=== PATIENT | male | born 1955 | race Caucasian/White ===

== ENCOUNTER 2017-07-29 16:18 | Emergency (ER) | payer OTHER ==
[~2017-07-29] VITALS: Ht 172.7 cm; Wt 76.2 kg
[2017-07-29 16:53] LABS: ABSOLUTE BASOPHIL COUNT 0 /CUMM (0.0-0.2); ABSOLUTE EOSINOPHIL COUNT 0.1 /CUMM (0.0-0.7); ABSOLUTE GRANULOCYTE CT 9.1 /CUMM (1.4-6.5); ABSOLUTE LYMPH COUNT 1.2 /CUMM (1.2-3.4); ABSOLUTE MONOCYTE COUNT 1.4 /CUMM (0.10-0.60); BASOPHIL % 0.1 % (0.0-2.0); EOSINOPHIL % 1.1 % (0-5); GRANULOCYTE % 76.7 % (42.2-75.2); MEAN CORPUSCULAR HGB 28.9 PG (27.0-31.0); MEAN CORPUSCULAR HGB CONC 33.6 G/DL (33.0-37.0); MEAN PLATELET VOLUME 6.5 FL (7.4-10.4); PLATELET COUNT 387 /CUMM (130-400); RBC DISTRIBUTION WIDTH 13.3 % (11.5-14.5); RED BLOOD CELL CT 4.18 /CUMM (4.70-6.10); WHITE BLOOD CELL COUNT 11.9 /CUMM (4.8-10.8)
--- NOTE | 2017-07-29 17:32 | ED NECK/BACK PAIN COMPLAINT ---
History of Present Illness General Chief Complaint: General Adult Stated Complaint: SENT BY DR. GRIFFIN FOR CT SCAN Source: patient Exam Limitations: no limitations Vital Signs & Intake/Output Vital Signs & Intake/Output Vital Signs Date Time Temp Pulse Resp B/P B/P Pulse O2 O2 Flow FiO2 Mean Ox Delivery Rate 07/29 1742 97 Room Air 07/29 1734 98.7 83 18 146/83 96 Room Air 07/29 1642 97.4 87 18 169/76 97 Room Air Room Air Allergies Coded Allergies: amoxicillin (From AUGMENTIN) (Intermediate, DIARRHEA 07/29/17) clavulanic acid (From AUGMENTIN) (Intermediate, DIARRHEA 07/29/17) Uncoded Allergies: IV CONTRAST (Intermediate, HOT, SWEATY 07/29/17) Reconcile Medications Clindamycin HCl (Cleocin HCl) 300 MG CAPSULE 1 CAP PO 4 TIMES/DAY neck mass Triage Note: PT TO ED WITH C/O ?ABCESS TO RIGHT NECK AREA, HAS HAD TESTS AND ANTIBIOTICS "GETTING BIGGER, HOT, RED, IT'S WORSE". DR BROWNING IN TO EVAL IN TRIAGE. BLOODWORK SENT FROM TRIAGE. Triage Nurses Notes Reviewed? yes Onset: Abrupt Duration: day(s):, constant Timing: recent history Quality/Severity: moderate, severe HPI: 62-year-old male sent in by his ear nose and throat doctor Dr. Griffin for increasing swelling on the right side of his neck. The swelling began this past Tuesday. It has gotten significantly larger. He denies any fever or vomiting or difficulty swallowing. Denies any prior history. He feels that it's more warm and hot to touch now. He was sent in for further evaluation for a CAT scan. (Baljit Montero) Past History Travel History Traveled to [place] past 21 day No Medical History Any Pertinent Medical History? see below for history Neurological: NONE EENT: NONE Cardiovascular: hypertension, hyperlipidemia Respiratory: NONE Gastrointestinal: NONE Hepatic: NONE Renal: NONE Musculoskeletal: NONE Psychiatric: NONE Endocrine: NONE Blood Disorders: NONE Cancer(s): NONE CLINICAL RN/Reproductive: NONE Surgical History Surgical History: non-contributory Psychosocial History What is your primary language Indian Tobacco Use: Quit >30 days ago ETOH Use: denies use Illicit Drug Use: denies illicit drug use Family History Hx Contributory? No (Baljit Montero) Review of Systems Review of Systems Constitutional: Reports: no symptoms. Eyes: Reports: no symptoms. Ears, Nose, Throat, Mouth: Reports: no symptoms. Respiratory: Reports: no symptoms. Cardiovascular: Reports: no symptoms. Gastrointestinal/Abdominal: Reports: no symptoms. Musculoskeletal: Reports: no symptoms. Skin: Reports: see HPI. Neurological/Psychological: Reports: no symptoms. All Other Systems: Reviewed and Negative (Baljit Montero) Physical Exam Physical Exam General Appearance: well developed/nourished, mild distress Head: atraumatic Eyes: Bilateral: normal appearance. Ears, Nose, Throat, Mouth: hearing grossly normal, moist mucous membrane Neck: swelling right side of neck, some warmth, some mild erythema, firm palpable mass Respiratory: normal breath sounds, no respiratory distress Cardiovascular: regular rate/rhythm Back: normal inspection Extremities: normal range of motion Neurologic/Psych: awake, alert, oriented x 3, normal mood/affect Skin: intact, normal color, warm/dry Core Measures CVA/TIA Diagnosis: No (Baljit Montero) Progress Differential Diagnosis: submandibular gland abscess, parotid gland abscess, lymphoma, cellulitis, skin abscess, Plan of Care: Orders Procedure Date/time Status Add-on Test (ER Only) 07/29 1731 Active Add-on Test (ER Only) 07/29 1703 Active C-REACTIVE PROTEIN 07/29 1645 Complete MONOSPOT TEST 07/29 1632 Complete COMPREHENSIVE METABOLIC PANEL 07/29 163 Complete CBC WITHOUT DIFFERENTIAL 07/29 1632 Complete Current Medications Sig/Gayathri Start time Last Medication Dose Stop Time Status Admin Acetaminophen 1,000 MG ONCE ONE 07/29 1914 AC (Ofirmev) 07/29 1928 N/A 1 UNIT (No Carrier) Ampicillin Sodium/ 3,000 MG ONCE ONE 07/29 1914 AC Sulbactam Sodium 07/29 1943 (Unasyn) Sodium Chloride 100 ML (Normal Saline 0.9%) Laboratory Tests 07/29/17 1645: Anion Gap 11, Estimated GFR > 60, BUN/Creatinine Ratio 28.6 H, Glucose 101 H, Calcium 9.0, Total Bilirubin 0.4, AST 20, ALT 35, Alkaline Phosphatase 83, C- Reactive Prot, Quant > 9.0 H, Total Protein 6.4, Albumin 3.5, Globulin 2.9, Albumin/Globulin Ratio 1.2, CBC w Diff NO MAN DIFF REQ, RBC 4.18 L, MCV 86.0, MCH 28.9, MCHC 33.6, RDW 13.3, MPV 6.5 L, Gran % 76.7 H, Lymphocytes % 10.0 L , Monocytes % 12.1 H, Eosinophils % 1.1, Basophils % 0.1, Absolute Granulocytes 9.1 H, Absolute Lymphocytes 1.2, Absolute Monocytes 1.4 H, Absolute Eosinophils 0.1, Absolute Basophils 0 07/29/17 1632: Infectious [place] Titer NEGATIVE Diagnostic Imaging: Viewed by Me: CT Scan. Discussed w/RAD: CT Scan. Radiology Impression: PATIENT: VINCE RENO PRESENT AGE: 62 PATIENT ACCOUNT NO: [id number] : 57 LOCATION: [facility] ORDERING PHYSICIAN: Baljit ROSALES SERVICE DATE: 07/29/17 EXAM TYPE : CAT - CT NECK W IV CONTRAST EXAMINATION: CT SOFT TISSUE NECK WITH CONTRAST CLINICAL INFORMATION: Right-sided neck swelling. COMPARISON: None TECHNIQUE: Following the administration of 95 mL of Optiray 320 intravenous contrast, helical imaging was performed in the axial plane with generation of coronal and sagittal reformatted images. A skin marker was placed in the right neck over the right sternocleidomastoid muscle. DLP: 500 mGy-cm FINDINGS: A heterogeneously enhancing centrally necrotic romeo mass is present in the right neck at level II and measuring up to 4.3 x 3.5 x 4.3 cm. There is diffuse inflammatory stranding surrounding this mass lesion which is inseparable from the deep/medial margin of the sternocleidomastoid muscles. The common and internal carotid arteries are medially displaced. The right internal jugular vein is compressed and effaced in this region. There is stranding of adjacent superficial and deep fat including the submandibular triangle and platysma. No additional necrotic or cystic adenopathy is seen. There are a cluster of nonenlarged right level 5 lymph nodes. There are top normal size left level II lymph nodes measuring up to 1.4 cm (series 2 image 47 and series 2 image 35). No retropharyngeal or parotid adenopathy is seen. There is some asymmetry of the right pharyngeal wall related to mass effect from the conglomerate romeo mass at level II. A discrete palatine tonsillar fossa mass is not seen. There is prominent asymmetric soft tissue at the left base of tongue and along the epiglottis and left aryepiglottic fold protruding into the piriform sinus. The submandibular and parotid glands are within normal limits. There is no retropharyngeal collection. The partially imaged lung apices are within normal limits. The imaged portions of the brain and orbits appear within normal limits. There is scattered paranasal sinus mucosal thickening without fluid levels. The mastoid air cells are clear. There is periapical abscess/granuloma associated with the roots of the left first maxillary molar and the right first and second maxillary molars. There are mild multilevel degenerative changes in the cervical spine. There are no destructive lesions within the osseous structures. IMPRESSION: 1. Heterogeneously enhancing centrally necrotic romeo mass in the right neck at level II measuring up to 4.3 cm. There is inflammatory stranding and fascial thickening subjacent to the lesion which is inseparable from the sternocleidomastoid muscle. The imaging features favor malignancy as the leading differential consideration. However, given the rapid onset of symptoms an infectious process remains in the differential. No other definite necrotic adenopathy is seen in the neck. 2. There is asymmetric soft tissue at the left base of tongue and at the left hypopharynx which could reflect lingual tonsillar tissue but should be confirmed with laryngoscopy. The right pharyngeal wall is partly effaced related to mass effect but there is no encroachment on the airway. This critical result was discussed with Balijt Luna on 07/29/2017 6:30 PM, and it was ascertained that the content and urgency of the report was understood at the time of direct communication. DICTATED BY: Tiffany Sarmiento MD DATE/TIME DICTATED:07/29/171813 VALUE ANALYST:ELMIRA DATE/TIME TRANSCRIBED:07/29/171813 CONFIDENTIAL, DO NOT COPY WITHOUT APPROPRIATE AUTHORIZATION. <Electronically signed in Other Vendor System> SIGNED BY: Tiffany Sarmiento MD 07/29/17 5629 Comments: 07/29/2017 7:09:[address] Griffin from ENT was consulted for her patient. Results of CT scan and lab works were discussed. Patient will be given a dose of Unasyn. Switched to clindamycin. Patient will follow-up in the office tomorrow. At this time patient is not having any airway compromise. He will return if any concerns worsening symptoms. He needs outpatient biopsy. Results of the CT scan was discussed with the patient. (Baljit Montero) Departure Departure Disposition: HOME OR SELF CARE Condition: Stable Clinical Impression Primary Impression: Neck mass Referrals: Yasmin AMARO,Humza Kat (PCP/Family) Additional Instructions: Take clindamycin as prescribed. Follow-up with ear nose and throat doctor tomorrow. Return if any concerns worsening symptoms. Please go over all results of today's visit with your primary care doctor. Contact your primary care doctor to let them know you were here in the emergency room. There may be nonspecific findings which may not be related to your visit today here in the emergency room but may require further evaluation and chronic monitoring by your primary care doctor. If you had a laceration today the chance of foreign body always remains. You should follow-up with your primary care doctor for recheck in 3-5 days for a wound check. If you had an x-ray done there is a chance that a fracture could have been missed on initial read and you should follow-up with your primary care doctor for repeat x-rays if symptoms persist. If your blood pressure was elevated here in the emergency room please have rechecked by [facility] primary care doctor within the next 48. If you were prescribed a narcotic here in the emergency room or any type of controlled substances you're not allowed to drive while taking this medication or operate any type of heavy machinery. Narcotics can make you feel lightheaded dizziness nausea and can cause constipation. You may need to pickling solution maker a stool softener. Thank you for choosing [facility] emergency room. Please return to the emergency room immediately if you have any other concerns worsening of symptoms. Departure Forms: Customer Survey General Discharge Information Prescriptions: Current Visit Scripts Clindamycin HCl (Cleocin HCl) 1 CAP PO 4 TIMES/DAY #28 CAP (Baljit Montero) PA/ENVIRONMENTAL PROGRAMS SPECIALIST Co-Sign Statement Statement: ED Attending supervision documentation- [] I saw and evaluated the patient. I have also reviewed all the pertinent lab results and diagnostic results. I agree with the findings and the plan of care as documented in the PA's/ENVIRONMENTAL PROGRAMS SPECIALIST's documentation. [x] I have reviewed the ED Record and agree with the PA's/ENVIRONMENTAL PROGRAMS SPECIALIST's documentation. [] Additions or exceptions (if any) to the PAs/ENVIRONMENTAL PROGRAMS SPECIALIST's note and plan are summarized below: [] (David AMARO,Manish Altamirano)
--- NOTE | 2017-07-29 18:39 | CT SCAN REPORT ---
EXAMINATION: CT SOFT TISSUE NECK WITH CONTRAST CLINICAL INFORMATION: Right-sided neck swelling. COMPARISON: None TECHNIQUE: Following the administration of 95 mL of Optiray 320 intravenous contrast, helical imaging was performed in the axial plane with generation of coronal and sagittal reformatted images. A skin marker was placed in the right neck over the right sternocleidomastoid muscle. DLP: 500 mGy-cm FINDINGS: A heterogeneously enhancing centrally necrotic romeo mass is present in the right neck at level II and measuring up to 4.3 x 3.5 x 4.3 cm. There is diffuse inflammatory stranding surrounding this mass lesion which is inseparable from the deep/medial margin of the sternocleidomastoid muscles. The common and internal carotid arteries are medially displaced. The right internal jugular vein is compressed and effaced in this region. There is stranding of adjacent superficial and deep fat including the submandibular triangle and platysma. No additional necrotic or cystic adenopathy is seen. There are a cluster of nonenlarged right level 5 lymph nodes. There are top normal size left level II lymph nodes measuring up to 1.4 cm (series 2 image 47 and series 2 image 35). No retropharyngeal or parotid adenopathy is seen. There is some asymmetry of the right pharyngeal wall related to mass effect from the conglomerate romeo mass at level II. A discrete palatine tonsillar fossa mass is not seen. There is prominent asymmetric soft tissue at the left base of tongue and along the epiglottis and left aryepiglottic fold protruding into the piriform sinus. The submandibular and parotid glands are within normal limits. There is no retropharyngeal collection. The partially imaged lung apices are within normal limits. The imaged portions of the brain and orbits appear within normal limits. There is scattered paranasal sinus mucosal thickening without fluid levels. The mastoid air cells are clear. There is periapical abscess/granuloma associated with the roots of the left first maxillary molar and the right first and second maxillary molars. There are mild multilevel degenerative changes in the cervical spine. There are no destructive lesions within the osseous structures. IMPRESSION: 1. Heterogeneously enhancing centrally necrotic romeo mass in the right neck at level II measuring up to 4.3 cm. There is inflammatory stranding and fascial thickening subjacent to the lesion which is inseparable from the sternocleidomastoid muscle. The imaging features favor malignancy as the leading differential consideration. However, given the rapid onset of symptoms an infectious process remains in the differential. No other definite necrotic adenopathy is seen in the neck. 2. There is asymmetric soft tissue at the left base of tongue and at the left hypopharynx which could reflect lingual tonsillar tissue but should be confirmed with laryngoscopy. The right pharyngeal wall is partly effaced related to mass effect but there is no encroachment on the airway. This critical result was discussed with Baljit Luna on 07/29/2017 6:30 PM, and it was ascertained that the content and urgency of the report was understood at the time of direct communication.
[2017-07-29] MEDS ORDERED: CLEOCIN HCL300 M1 PO (19:12)
[2017-07-29 20:25] VITALS: BP 108/57
== END 2017-07-29 20:42 ==
LOC: ERH 16:18
PROVIDERS: Internal Medicine
DX: R22.1 Localized swelling, mass and lump, neck (principal)
CPT/HCPCS: 96365; 96375; J0131; J1200

== ENCOUNTER → 2017-08-19 | Day surgery (SDC) | payer OTHER ==
[~2017-08-19] VITALS: Ht 172.7 cm; Wt 74.4 kg
[~2017-08-19] MED LIST: AMLODIPINE-BEN1 EAC5 PO; CEPHALEXIN500 M3 PO; CLEOCIN HCL300 M1 PO; DAILY MULTIPLE1 EACH PO; FISH OIL 1,0001 EAC2 PO; SIMVASTATIN10 M1 PO; VITAMIN C500 M9 PO
--- NOTE | 2017-08-19 10:21 | Operative Report ---
Operative/Inv Procedure Report Surgery Date: 08/19/17 Name of Procedure: Microlaryngoscopy with diode laser excision of base of tongue lesion, left Pre-Operative Diagnosis: Base of tongue lesion, left Post-Operative Diagnosis: Same Estimated Blood Loss: scant Surgeon/Brand Advocate: Tamiko Griffin MD Anesthesia: general endotracheal tube Drains: none Specimens: Base of tongue Lesion, Left Microbiology: Non- Condition: Stable on leaving the OR Operative Indication: Base of tongue lesion, left Patient was asymptomatic Incidental finding during physical exam Operative/Procedure Note Note: Patient was brought to the operating room. Placed on the operating table in supine position. First timeout was performed including patient's name, ID number and planned procedure. Then general oroendotracheal anesthesia was induced. Laser tube was used and it was secured with tape over the right lip commissure. Next patient was positioned for microlaryngoscopy. Operating room table was rotated 90 away from the anesthesia team toward patient's right. Head was sterilely draped. Anterior commissure laryngoscope was then used and laryngoscopy was performed. A dental guard was used for protection of the upper teeth. Anterior commissure laryngoscope was then used and direct laryngoscopy was performed. The anterior commissure laryngoscope was introduced into the oral cavity, oropharynx, hypopharynx and larynx. Examination of the larynx and hypopharynx was then carried. The left lateral base of tongue had exophytic sessile lesion, valleculae appeared to be clear both right and left piriform sinuses were clear. Epiglottis over the lingual and laryngeal surfaces was clear. Aryepiglottic folds were intact. Glottis was visualized. It was clear. At the posterior commissure was intact. Anterior commissure laryngoscope was removed. Next hypopharyngoscope was introduced into the oral cavity oropharynx and hypopharynx. Left base of tongue was visualized with lesion in the view. There was exophytic verrucous like lesion. Which was quite friable. The specimen was sent for frozen. Pathology revealed squamous cell carcinoma. Hypopharyngoscope was fixed in place with suspension arm. The lesion was about 2 x 2 centimeters verrucous and pedunculated attached by a broad-based pedicle approximately 1 x 1 cm. It was located over the very lateral left base of tongue. Microscope was brought into the field and so was the Diode laser. The lesion was grasped with cup forceps and excised at its pedicle with diode laser on the settings of 10W/ 20Hz superpulse . Additional base of tongue tissue was removed and sent separately. This followed by Diode laser application to the pedicle base with settings of 3W/ continuous wave to control the bleeding. Overall there was no significant bleeding. The procedure was completed. Microscope and laser were removed. Laryngoscope was dismounted from the suspension apparatus and removed. Surgery was completed. The patient was reawakened, extubated and taken to the recovery room in good condition. There were no complications. Estimated blood loss was minimal. Findings: Left lateral base of tongue verrucous like lesion approximately 2 x 2 cm with a base of approximately 1 x 1 cm Frozen section positive for squamous cell Discharge Disposition: PACU
== END ==
LOC: STS 02:30
DX: C01 Malignant neoplasm of base of tongue (principal); Z87.891 Personal history of nicotine dependence; I10 Essential (primary) hypertension
CPT/HCPCS: 88305; 88331; C9399; J0131; J0171; J0690; J2250; Q9968

== ENCOUNTER 2017-09-08 01:33 | Inpatient (IN) | payer OTHER ==
[~2017-09-08] VITALS: Ht 172.7 cm; Wt 74.4 kg
--- NOTE | 2017-09-08 19:04 | Operative Report ---
Operative/Inv Procedure Report Surgery Date: 09/08/17 Name of Procedure: 1. Direct laryngoscopy with biopsy of base of tongue, right 2. Selective neck dissection, level II, III, V, right with frozen section, with NIMS monitor 3. Selective neck dissection, level II, II, V left, with Nims monitor Pre-Operative Diagnosis: 1. 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 Neck mass, right 3. Neck adenopathy, left Post-Operative Diagnosis: Same Estimated Blood Loss: 50ml to 100ml Surgeon/Marketing Clerk: Elias AMARO,Tamiko OROSCO. Anesthesia: general endotracheal tube (NIMS monitor) Monitors: NIMS monitor IV Fluids: 3500ml Urine Output: 800ml Drains: VARGAS x 2 Specimens: 1. Base of tongue, right 2. r/o Lymph node, level II, right 3. Neck mass, right frozen section 4. Neck dissection, right, levels 2, 3, 5 5. Neck dissection, left, levels 2, 3, 5 Microbiology: Non- Complications: Non- Condition: Stable on leaving the OR Operative Indication: 1. The base of tongue squamous cell carcinoma, left 2. Neck mass, right Operative/Procedure Note Note: Patient was brought to the operating room. Placed on the operating table in supine position. First timeout was performed including patient's name, ID number and planned procedure. Then general oroendotracheal anesthesia was induced. NIMS endotracheal tube was used and it was secured with tape over the left lip commissure. Next patient was positioned for direct laryngoscopy. Operating room table was rotated 90 away from the anesthesia team toward patient's right. Head was sterilely draped. Anterior commissure laryngoscope was then used and laryngoscopy was performed. A dental guard was used for protection of the upper teeth. Anterior commissure laryngoscope was then used and laryngoscopy was performed. The anterior commissure laryngoscope was introduced into the oral cavity, oropharynx, hypopharynx and larynx. Examination of the larynx and hypopharynx was then carried. Base of tongue, valleculae appeared to be clear both right and left piriform sinuses were clear. Epiglottis over the lingual and laryngeal surfaces was clear. Aryepiglottic folds were intact. Glottis was visualized. Both vocal cords were clear. Laryngoscope was slightly withdrawn and the right base of tongue was visualized. Base of tongue had to normal-appearing lymphoid tissue. There was no evidence of exophytic lesions. Right base of tongue biopsy was carried with cup forceps. Once completed, bleeding was controlled by application or from pressure with lap sponge. Laryngoscope was withdrawn. The lap sponge was left in place through the middle of the case. Dental guard was removed. Direct laryngoscopy was completed. Patient was positioned for right neck surgery. Neck was slightly hyperextended and had rotated to the left. Right neck exposed. NIMS monitor electrodes were inserted into the right lower lip and trapezius for nerve monitoring of the marginal mandibular and spinal accessory nerves. The electrodes were was secured in place with OpSite. They were then connected to the NIMS monitor which was then set neck dissection mode, 4 leads. Neck was prepped and draped in the routine manner and surgery was performed. A horizontal incision was placed in a skin crease manner about 2 fingerbreadths below the mandible. The incision was crosshatched for the end of the surgery skin approximation. Incision was carried directly over the right neck mass. The area of prior needle biopsy was incorporated into the excision the skin and subcutaneous tissue were excised in a fusiform manner. The incision was carried with a 15 blade through the skin and subcutaneous tissue. Platysma was identified and transected by using the clamp and cut technique to avoid injury to the marginal mandibular nerve. Skin was then elevated in subplatysmal manner at first superiorly, care was taken not to injure the marginal mandibular nerve. Then inferiorly including anterior neck to the midline and posterior neck over the sternocleidomastoid muscle all the way around to the posterior neck to the region of trapezius muscle. The soft tissue around the bowels was markedly scarred down onto the mouth and very difficult to dissect. Surgery was slow due to the amount of scar tissue. Cutaneous branches exiting the Erb's point were identified and preserved including greater auricular nerve. Neck mass was located at level II. It was adherent to the sternocleidomastoid posterior and deep as well as on to the tail of the parotid posterior superior and onto submaxillary gland anterior superior. Once tumor mass was freed from these surrounding area was then dissection was carried deep to identify internal jugular vein. The vein had to be identified below the mass with dense fibrosis. Then carefully internal jugular was dissected away from the mass. The mass was finally freed from the surrounding tissue and removed. On inspection there appeared to be at least 2 matted lymph nodes adjacent to the mass. The mass was then sent for frozen which revealed squamous cell carcinoma within the specimen. At this point decision was made to proceed with neck dissection. At first dissection was carried along the anterior medial border of the sternocleidomastoid muscle and dissection was carried anteriorly and deep to the sternocleidomastoid muscle, all the way onto the floor of the neck, level V. Lymph nodes were identified and dissected. Dissection was then carried superiorly to the tail of the parotid. Deep to the tail and adjacent to sternocleidomastoid muscle and there were additional lymph nodes which were all dissected with the specimen. Then along the tail of the parotid anteriorly to the submaxillary gland. Anterior facial vein was identified. It was preserved. Marginal mandibular nerve was never fully identified throughout the entire dissection although it did stimulate a nerve stimulation in its anticipated course. Dissection was carried along the inferior border of the submaxillary gland and the deep to the level of the digastric muscle. Fibrofatty tissue below the submaxillary gland under the digastric muscle was dissected with the specimen. Dissection was carried deep to the level of internal jugular. Fibrofatty tissue over the internal jugular was dissected away from the jugular vein. Digastric muscle defined the superior limit of the dissection. Jugular vein was preserved. Spinal accessory nerve was then searched for and identified in its anticipated location entering sternocleidomastoid muscle. Spinal accessory nerve was dissected and preserved. Dissection was carried laterally and inferiorly along the internal jugular as well as deep to the sternocleidomastoid muscle exposing level III and level V. Additional adenopathy was identified and lymph nodes were removed in continuity with the entire specimen. Omohyoid muscle was identified traversing the internal jugular. This defined the inferior extent of the dissection. Cricoid ring was palpated which was again defining the inferior limit of the neck dissection. Ansa cervicalis was identified and preserved. All the fibrofatty tissue was swept superiorly with the specimen. Additional dissection was carried medial border of the sternocleidomastoid and deep to the sternocleidomastoid extending the dissection onto level V. Additional fibrofatty tissue was removed. Specimen was then removed and consisted primarily of level II, III and V lymph nodes. Once the specimen was freed from underlying tissue it was removed. Right neck surgery was completed. Wound was copiously irrigated. Additional bleeding sites cauterized with bipolar. Helotene powder was placed into the neck dissection bed. A #10 Mohawk suction drain were inserted into the wound for drainage. The drain came out through the lateral end of the incision. It was stitched in place with 2-0 silk. Closure was then carried at first platysma with 4-0 Vicryl inverting sutures followed by skin closure with 5-0 Monocril horizontal subcuticular running stitch. Dermabond was applied to the incision followed by Steri-Strips. Drain tubing was connected to the VARGAS self suction carnister. Total blood loss was taped over the Steri-Strips All the drapes were removed. Nims electrodes from the right lower lip and right trapezius muscles were removed. The surgical bed was then rotated 180 at first toward the anesthesia and then towards the patient's left for proper exposure of left neck dissection. Neck was slightly hyperextended and had rotated to the right. Left neck exposed. NIMS monitor electrodes were inserted into the left lower lip and trapezius for nerve monitoring of the marginal mandibular and spinal accessory nerves. The electrodes were was secured in place with OpSite. They were then connected to the NIMS monitor which was then set neck dissection mode, 4 leads. Neck was prepped and draped in the routine manner and surgery was performed. A horizontal incision was placed in a skin crease manner about 2 fingerbreadths below the mandible. The incision was crosshatched for the end of the surgery skin approximation. Incision was carried directly over the right neck mass. The area of prior needle biopsy was incorporated into the excision the skin and subcutaneous tissue were excised in a fusiform manner. The incision was carried with a 15 blade through the skin and subcutaneous tissue. Platysma was identified and transected by using the clamp and cut technique to avoid injury to the marginal mandibular nerve. Skin was then elevated in subplatysmal manner at first superiorly, care was taken not to injure the marginal mandibular nerve. Then inferiorly including anterior neck to the midline and posterior neck over the sternocleidomastoid muscle all the way around to the posterior neck to the region of trapezius muscle. Superiorly below the platysma marginal mandibular nerve was identified and preserved. Cutaneous branches exiting the Erb's point were identified and preserved including greater auricular nerve. Dissection was carried out first along the anterior border of the sternocleidomastoid. Dissection was deep to the sternocleidomastoid muscle, all the way onto the floor of the neck, level V. Lymph nodes were identified and dissected. Dissection was then carried superiorly to the tail of the parotid. Deep to the tail and adjacent to sternocleidomastoid muscle and there were additional lymph nodes which were all dissected with the specimen. Then along the tail of the parotid anteriorly to the submaxillary gland. Anterior facial vein was identified. It was preserved. Dissection was carried along the inferior border of the submaxillary gland and the deep to the level of the digastric muscle. Fibrofatty tissue below the submaxillary gland under the digastric muscle was dissected with the specimen. Dissection was carried deep to the level of internal jugular. Fibrofatty tissue over the internal jugular was dissected away from the jugular vein. Digastric muscle defined the superior limit of the dissection. Jugular vein was preserved. Spinal accessory nerve was then searched for and identified in its anticipated location entering sternocleidomastoid muscle. Spinal accessory nerve was dissected and preserved. Dissection was carried laterally and inferiorly along the internal jugular as well as deep to the sternocleidomastoid muscle exposing level III and level V. Additional adenopathy was identified and lymph nodes were removed in continuity with the entire specimen. Omohyoid muscle was identified traversing the internal jugular. This defined the inferior extent of the dissection. Cricoid ring was palpated which was again defining the inferior limit of the neck dissection. Ansa cervicalis was identified and preserved. All the fibrofatty tissue was swept superiorly with the specimen. Additional dissection was carried medial border of the sternocleidomastoid and deep to the sternocleidomastoid extending the dissection onto level V. Additional fibrofatty tissue was removed. Specimen was then removed and consisted primarily of level II, III and V lymph nodes. Once the specimen was freed from underlying tissue it was removed. Left neck surgery was completed. Wound was copiously irrigated. Additional bleeding sites cauterized with bipolar. A #10 Mohawk suction drain were inserted into the wound for drainage. The drain came out through the lateral end of the incision. It was stitched in place with 2-0 silk. Closure was then carried at first platysma with 4-0 Vicryl inverting sutures followed by skin closure with 5-0 Monocril horizontal subcuticular running stitch. Dermabond was applied to the incision followed by Steri-Strips. Drain tubing was connected to the self suction carnister. Drapes were removed and patient had wraparound dressing placed with fluffs application along each side of the neck. Patient was then reawakened, extubated and taken to the recovery room in good condition. There were no complications. Estimated blood loss was 100 mL. Findings: Neck mass, right extremely stuck down onto the surrounding tissue Neck adenopathy, right Neck adenopathy, left Cranial nerves including marginal mandibular and spinal accessory preserved, bilaterally Discharge Disposition: PACU
[2017-09-08 21:02] VITALS: BP 152/80
[2017-09-09] VITALS: BP 148/82
[2017-09-09 04:22] LABS: ABSOLUTE BASOPHIL COUNT 0 /CUMM (0.0-0.2); ABSOLUTE EOSINOPHIL COUNT 0 /CUMM (0.0-0.7); ABSOLUTE GRANULOCYTE CT 9.7 /CUMM (1.4-6.5); ABSOLUTE LYMPH COUNT 0.5 /CUMM (1.2-3.4); ABSOLUTE MONOCYTE COUNT 0.5 /CUMM (0.10-0.60); BASOPHIL % 0.1 % (0.0-2.0); EOSINOPHIL % 0 % (0-5); GRANULOCYTE % 91.2 % (42.2-75.2); MEAN CORPUSCULAR HGB 28.9 PG (27.0-31.0); MEAN CORPUSCULAR HGB CONC 33.7 G/DL (33.0-37.0); MEAN CORPUSCULAR VOLUME 85.6 FL (80.0-94.0); MEAN PLATELET VOLUME 6.7 FL (7.4-10.4); PLATELET COUNT 292 /CUMM (130-400); RBC DISTRIBUTION WIDTH 14.3 % (11.5-14.5); RED BLOOD CELL CT 4.44 /CUMM (4.70-6.10); WHITE BLOOD CELL COUNT 10.6 /CUMM (4.8-10.8)
--- NOTE | 2017-09-09 05:21 | PN- General Surgery ---
Subjective Subjective: 62-year-old male postop day 1 in the ICU after bilateral radical neck dissection for squama cell carcinoma. Patient did well overnight without complaints he has been restless and unable to sleep. He did have some difficulty tolerating the Ortega catheter it was removed last night he was able to urinate approximately 2 75 mL without difficulty. Pain has been controlled and he remains comfortable. he is anxious to go home today Review of Systems: Constitutional: No chills no fever no weakness HEENT: No blurred vision visual changes no throat pain nasal pain CV: denies chest pain edema orthopnea syncopal episode no peripheral edema Respiratory: No cough hemoptysis shortness of breath or wheeze GI: No abdominal pain bloating constipation or diarrhea or bloody stools no vomiting Musculoskeletal: No neck pain back pain or joint swelling Skin: No recent acute changes in skin Neurological: No dizziness weakness or acute mental status changes Hematologic: no history of blood dyscrasia to include PE DVT or bleeding disorder Objective Vital Signs and I&Os Vital Signs Date Time Temp Pulse Resp B/P B/P Pulse O2 O2 Flow FiO2 Mean Ox Delivery Rate 09/09 0400 96 Room Air 09/09 0000 97 Room Air 09/09 0000 99.0 84 14 148/82 96 Room Air 09/08 2242 Room Air Room Air 09/08 210 96 Room Air 09/08 210 99.5 82 14 152/80 95 Room Air Intake & Output 09/09 0800 09/09 0000 09/08 1600 09/08 0800 09/08 0000 09/07 1600 Intake Total 195 Output Total 720 Balance -525 Intake, IV 75 Intake, Oral 120 Output, 20 Drainage Output, Urine 700 Patient 164 lb Weight Weight Bed scale Measurement Method Physical Exam: PE - patient is alert and comfortable VSS afebrile HEENT -WNL neck - bulky circumferential dressing -CDI drains @ 10cc each overnight, not emptied chest - CTA symmetric without rales ronchi or wheeze heart -RRR without MRG abdomen -nontender LE - no edema, calves soft bilaterally. Current Medications: Current Medications Sig/Gayathri Start time Last Medication Dose Route Stop Time Status Admin Acetaminophen 650 MG Q6P PRN 09/08 2114 AC PO Acetaminophen 1,000 MG .STK-MED ONE 09/08 0550 DC IV 09/08 650 Amlodipine Besylate 10 MG DAILY 04/06 1000 AC PO Atorvastatin Calcium 10 MG DAILY 09/09 1000 AC PO Cefazolin Sodium 1,000 MG IQ8 09/09 0000 AC 04/ IV 09/09 0801 2359 Docusate Sodium 100 MG DAILY PRN 09/08 211 AC PO Fentanyl Citrate 500 MCG .STK-MED ONE 09/08 0650 DC IM 09/08 0651 Heparin Sodium 5,000 UNIT Q8 09/08 2200 AC 09/08 (Porcine) SC 2148 Labetalol HCl 100 MG .STK-MED ONE 09/08 2013 DC IV 09/08 2014 Lisinopril 40 MG DAILY 09/09 1000 AC PO Midazolam HCl 2 MG .STK-MED ONE 09/08 0651 DC IM 09/08 0652 Morphine Sulfate 4 MG Q4P PRN 09/08 211 AC 09/09 IV 0004 Morphine Sulfate 4 MG .STK-MED ONE 09/08 1935 DC IM 09/08 1936 Morphine Sulfate 10 MG .STK-MED ONE 09/08 0651 DC IV 09/08 0652 Ondansetron HCl 4 MG Q8P PRN 09/08 2100 AC IV Oxycodone HCl 5 MG Q6P PRN 09/08 2115 AC 09/08 PO 2148 Oxycodone HCl 10 MG Q6P PRN 09/08 2115 AC PO Remifentanil 2 MG .STK-MED ONE 09/08 1749 DC IV 09/08 1750 Remifentanil 3 MG .STK-MED ONE 09/08 1331 DC IV 04 1332 Remifentanil 2 MG .STK-MED ONE 09/08 1131 DC IV 09/08 1132 Remifentanil 2 MG .STK-MED ONE 09/08 0651 DC IV 04 0652 Sodium Chloride 1,000 ML .[id number] 09/08 2100 AC 04 IV 2147 Assessment/Plan Assessment/Plan POD#1 bilateral radical neck dissection ortega out, progress diet OOB with nursing for progressive ambulation plan to D/C home today Problem List: 1. Neck mass Core Measures Venous Thromboembolism VTE Risk Factors No risk factors No Mechanical VTE Prophylaxis d/t LowRisk-No Interven Req'd No VTE Pharm Prophylaxis d/t LowRisk-No Interven Req'd
[2017-09-09 08:00] VITALS: BP 142/70
--- NOTE | 2017-09-09 09:06 | Surg Short-stay <48hrs Dis Sum ---
Visit Information Visit Dates Admission Date: 09/08/17 Discharge Date: 09/09/17 Surgical Short Stay DC Summary Admission Diagnosis: 1. 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 Neck mass, right 3. Neck adenopathy, left Final Diagnosis: same as above, s/p Surgery Date: 09/08/17 Name of Procedure: 1. Direct laryngoscopy with biopsy of base of tongue, right 2. Selective neck dissection, level II, III, V, right with frozen section, with NIMS monitor 3. Selective neck dissection, level II, II, V left, with Nims monitor Procedure(s): Surgery Date: 09/08/17 Name of Procedure: 1. Direct laryngoscopy with biopsy of base of tongue, right 2. Selective neck dissection, level II, III, V, right with frozen section, with NIMS monitor 3. Selective neck dissection, level II, II, V left, with Nims monitor Summary/Significant Findings: Electively scheduled selective neck dissection by (09/08/17) for pre-op diagnosis: 1. 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 Neck mass, right 3. Neck adenopathy, left Post-operatively diet was advanced as tolerated. Discharged to home with a VARGAS drain that will be removed in the office by tomorrow morning. Prescriptions for cefadroxil and percocet given to patient by prior to surgery. Condition at Discharge: stable Discharge Disposition: home or self care Discharge instructions provided to patient/family: Yes Post discharge follow-up plan: see tomorrow in the office for drain removal Copies to: Yasmin AMARO,Humza Kat
--- NOTE | 2017-09-09 09:10 | Patient Discharge Instructions ---
Discharge Instructions General Discharge Information You were seen/treated for: Pre-Operative Diagnosis: 1. 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 Neck mass, right 3. Neck adenopathy, left You had these procedures: Surgery Date: 09/08/17 Name of Procedure: 1. Direct laryngoscopy with biopsy of base of tongue, right 2. Selective neck dissection, level II, III, V, right with frozen section, with NIMS monitor 3. Selective neck dissection, level II, II, V left, with Nims monitor Watch for these problems: fever>101.3, increased pain, redness/swelling/drainage, shortness of breath, chest pain, dizziness, difficulty swallowing Other wound care: VARGAS drain care follow up with tomorrow morning for drain removal Diet Continue normal diet: Yes Recommended Diet: Regular Activity Full Activity/No Limits: No Activity Self Limited: Yes Pounds, do NOT lift more than: 10 Other activity limits: no heavy lifting. no strenuous activity. Acute Coronary Syndrome Inclusion Criteria At DC or during hospital stay patient has or had the following: ACS DIAGNOSIS No Discharge Core Measures Meds if any: Prescribed or Continued at Discharge Meds if any: NOT Prescribed or Continued at Discharge Congestive Heart Failure Inclusion Criteria At DC or during hospital stay patient has or had the following: CHF DIAGNOSIS No Discharge Core Measures Meds if any: Prescribed or Continued at Discharge Meds if any: NOT Prescribed or Continued at Discharge Cerebrovascular accident Inclusion Criteria At DC or during hospital stay patient has or had the following: CVA/TIA Diagnosis No Discharge Core Measures Meds if any: Prescribed or Continued at Discharge Meds if any: NOT Prescribed or Continued at Discharge Venous thromboembolism Inclusion Criteria VTE Diagnosis No VTE Type NONE VTE Confirmed by (Test) NONE Discharge Core Measures - Per Current guidelines, there needs to be overlap - treatment for the first 5 days of Warfarin therapy. - If discharged on Warfarin prior to 5 days of - overlap therapy, the patient will need to be - assessed for post discharge needs including - *Post discharge parental anticoagulation - *Warfarin and/or parental anticoagulation education - *Follow up date to check INR post discharge At least 5 days overlap therapy as Inpatient No Meds if any: Prescribed or Continued at Discharge Note: Overlap Therapy is Warfarin and Anticoagulant Meds if any: NOT Prescribed or Continued at Discharge
[2017-09-09] MEDS ORDERED: CEFADROXIL500 M1 PO (09:17)
[2017-09-09] MEDS ORDERED: PERCOCET 7.5-31 EACH PO (09:17)
[2017-09-09 09:28] VITALS: BP 181/88
== END 2017-09-09 10:34 | DRG 134 ==
LOC: STS 01:33 → PACUH 09:42 → CRI 09:42 → PACUH 09:42 → ENRESERV 19:15 → ENTRNSPT 19:50 → EDTRNSPTSTS 19:54 → EDTRNSPT 20:05 → CMPTRNSPT 20:38 → CRI 21:32 → CMPBEDREQ 09-09 10:04 → CRI 09-09 10:34
PROVIDERS: Physician Assistant
PROC: 0CBM8ZX Excision of Pharynx, Via Natural or Artificial Opening Endoscopic, Diagnostic (ICD-10-PCS; principal; 2017-09-08)
PROC: 07B10ZZ Excision of Right Neck Lymphatic, Open Approach (ICD-10-PCS; principal; 2017-09-08)
PROC: 07B20ZZ Excision of Left Neck Lymphatic, Open Approach (ICD-10-PCS; principal; 2017-09-08)
PROC: 4A11X4G Monitoring of Peripheral Nervous Electrical Activity, Intraoperative, External Approach (ICD-10-PCS; principal; 2017-09-08)
PROC: 0CB70ZX Excision of Tongue, Open Approach, Diagnostic (ICD-10-PCS; principal; 2017-09-08)
DX: C01 Malignant neoplasm of base of tongue (principal); E78.5 Hyperlipidemia, unspecified; I10 Essential (primary) hypertension; Z87.891 Personal history of nicotine dependence; R59.0 Localized enlarged lymph nodes
CPT/HCPCS: CCU; 36415; 82436; J0131; J0690; J1644; J2405